=== PATIENT | female | born 2000 | race African-American/Black ===

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

== ENCOUNTER 2021-03-13 16:59 | Emergency (ER) | payer SELFPAY ==
[2021-03-13 17:43] LABS: Bilirubin Negative (Negative); Blood, Urine Negative (Negative); Clarity Cloudy (Clear); Glucose, Urine (Dipstick) Negative (Negative); Ketone, Urine Negative (Negative); Leukocyte Trace (Negative); Nitrite Negative (Negative); Protein, Urine (Dipstick) Negative (Neg-Trace); Specific Gravity, Urine 1.025 (1.005-1.030); Urobilinogen 0.2 mg/dL (Less than 2)
[2021-03-13 17:57] LABS: Bacteria/HPF Rare-Few HPF (None Seen); RBC/HPF 0-3 HPF (0-3)
== END 2021-03-13 19:45 | disposition short-term general hospital (02) ==
LOC: MADERS 16:59
DX: O99.891 Other specified diseases and conditions complicating pregnancy (principal); R10.2 Pelvic and perineal pain; O99.511 Diseases of the respiratory system complicating pregnancy, first trimester; J45.909 Unspecified asthma, uncomplicated; Z3A.01 Less than 8 weeks gestation of pregnancy
CPT/HCPCS: 36415; 81003; 81015; 84702; 99284

== ENCOUNTER 2021-03-26 20:25 | Emergency (ER) | payer MEDICAID, OTHER, SELFPAY | END 2021-03-26 22:04 | disposition home or self-care (01) | LOC: MADERS 20:25 | DX: O20.0 Threatened abortion (principal); O99.511 Diseases of the respiratory system complicating pregnancy, first trimester; J45.909 Unspecified asthma, uncomplicated; Z3A.01 Less than 8 weeks gestation of pregnancy | CPT/HCPCS: 36415; 84702; 99284 ==

== ENCOUNTER 2021-05-18 08:36 | Emergency (ER) | payer OTHER ==
[2021-05-18] MEDS ORDERED: Acetaminophen 500 MG TAB ONE (09:22)
== END 2021-05-18 09:28 | disposition home or self-care (01) ==
LOC: MADERS 08:36
DX: O9A.212 Injury, poisoning and certain other consequences of external causes complicating pregnancy, second trimester (principal); S30.0XXA Contusion of lower back and pelvis, initial encounter; Z3A.16 16 weeks gestation of pregnancy; Z79.899 Other long term (current) drug therapy

== ENCOUNTER 2021-06-25 23:23 | Emergency (ER) | payer OTHER ==
[2021-06-25 23:43] LABS: Bilirubin Negative (Negative); Blood, Urine Negative (Negative); Clarity Clear (Clear); Glucose, Urine (Dipstick) Negative (Negative); Ketone, Urine Negative (Negative); Leukocyte Negative (Negative); Nitrite Negative (Negative); Protein, Urine (Dipstick) Negative (Neg-Trace); Urobilinogen 0.2 mg/dL (Less than 2)
[2021-06-25 23:44] LABS: Specific Gravity, Urine 1.028 (1.002-1.036)
== END 2021-06-26 00:19 | disposition home or self-care (01) ==
LOC: MADERS 23:23
DX: O98.812 Other maternal infectious and parasitic diseases complicating pregnancy, second trimester (principal); B37.3 Candidiasis of vulva and vagina; O99.891 Other specified diseases and conditions complicating pregnancy; N88.8 Other specified noninflammatory disorders of cervix uteri; Z3A.22 22 weeks gestation of pregnancy
CPT/HCPCS: 81003; 99284

== ENCOUNTER 2021-08-16 15:40 | Outpatient (CLI) | payer OTHER ==
[2021-08-16 17:29] LABS: #Basophils 0.1 thou/uL (0.0-0.2); #Eosinphils 0.1 thou/uL (0.0-0.7); #Lymphocytes 1.9 thou/uL (1.20-3.40); #Monocytes 0.7 thou/uL (0.11-0.59); #Neutrophils 4.1 thou/uL (1.40-6.50); %Basophils 1.2 % (0.0-1.0); %Lymphocytes 28.1 % (28.0-48.0); %Monocytes 10.2 % (0.0-4.0); %Neutrophils 59.5 % (31.0-61.0); Hemoglobin 11.5 g/dL (12.0-16.0); Mean Corpuscular HGB CONC 33.3 g/dL (32.0-36.0); Mean Corpuscular Volume 96.2 fL (78.0-98.0); Mean Platelet Volume 9.7 fL (7.4-10.4); Platelet Count 221 thou/uL (130-400); White Blood Cell (WBC) Count 6.9 thou/uL (4.8-10.8)
[2021-08-16 22:03] LABS: Syphilis Antibody Nonreactive (Nonreactive); Syphilis Antibody Index 0.03 S/CO (<1.00 Non-Reactive)
[2021-08-16 23:47] LABS: HIV (1/2) Antibody/Antigen Non-Reactive (NonReactive); HIV 1/2 INDEX 0.19 S/CO (<1.00)
== END 2021-08-16 15:41 | disposition home or self-care (01) ==
LOC: MADRAD 15:40
PROVIDERS: ATTEND Family Medicine
DX: Z34.02 Encounter for supervision of normal first pregnancy, second trimester (principal)
CPT/HCPCS: 36415; 82950; 85025; 86780; 87389